=== PATIENT | male | born 1965 | race Caucasian/White ===

== ENCOUNTER → 2018-10-23 | Outpatient (CLI) | payer MEDICARE ==
[~2018-10-23] MED LIST: IOHEXOL-350 75 ML VIAL IV ONE
== END | disposition home or self-care (01) ==
LOC: RAH 08:06
PROVIDERS: ATTEND Family Medicine
DX: K57.30 Diverticulosis of large intestine without perforation or abscess without bleeding (principal); R19.05 Periumbilic swelling, mass or lump; J43.9 Emphysema, unspecified
CPT/HCPCS: 74178; Q9967

== ENCOUNTER → 2019-10-01 | Outpatient (CLI) | payer OTHER | END | disposition home or self-care (01) | LOC: OIH 10:05 | PROVIDERS: ATTEND Internal Medicine | DX: M19.072 Primary osteoarthritis, left ankle and foot (principal); M19.071 Primary osteoarthritis, right ankle and foot; M77.52 Other enthesopathy of left foot and ankle; M77.51 Other enthesopathy of right foot and ankle; M47.816 Spondylosis without myelopathy or radiculopathy, lumbar region; M43.17 Spondylolisthesis, lumbosacral region; M27.8 Other specified diseases of jaws; M41.84 Other forms of scoliosis, thoracic region; M16.0 Bilateral primary osteoarthritis of hip; M25.742 Osteophyte, left hand; M25.741 Osteophyte, right hand | CPT/HCPCS: 72100; 72202; 73130; 73630 ==